=== PATIENT | female | born 1950 | race African-American/Black ===

== ENCOUNTER → 2018-12-28 | Day surgery (SDC) | payer MEDICARE ==
[~2018-12-28] MED LIST: ATORVASTATIN PO; BUPIVACAINE 0.25%/EPI 30ML SDV INJ ONE; DEXAMETHASONE SOD PHOS INJ 4 MG/ML VIAL ONE; FARXIGA PO; FENTANYL CITRATE/PF 100MCG/2 ML INJ ONE; FUROSEMIDE40 MG PO; HYDROCODONE/APAP 5MG-325MG TAB ONE; KETOROLAC TROMETHAMINE 30 MG/ML VIAL ONE; LIDOCAINE HCL 2% LOCAL INJ 5 ML SDV VIAL INJ ONE; LISINOPRIL PO; METFORMIN HCL1000 MG PO; MIDAZOLAM HCL 2 MG/2 ML VIAL ONE; ONDANSETRON HCL INJ 2MG/ML 2ML 2 MG/ML VIAL ONE; PROPOFOL IV EMULSION 10 MG/ML 20 ML VIAL ONE; SEVOFLURANE INHAL SOLN 250 ML PEN BTL ONE; [UNRECOGNIZED DRUG - OTHER] PO
--- OUTSIDE RECORDS SUMMARY | 2018-12-28 07:41 | XMS REPORT ---
Author Author [facility] Address Unknown Phone Unavailable Care Team Providers [facility] Associate Name Role Phone Unavailable Unavailable Problems This patient has no known problems. Allergies, Adverse Reactions, Alerts This patient has no known allergies or adverse reactions. Medications This patient has no known medications. Results Test Description Test Time Test Comments Text Results Atomic Results Result Comments SCR MAMM BILATERAL NGA CAD DIGITAL 2018-10-10 14:02:32 - SCR MAMM BILATERAL NGA CAD DIGITALBILATERAL DIGITAL SCREENING MAMMOGRAM 3D/2D WITH CAD: 10/09/2018CLINICAL: Asymptomatic. Digital breast tomosynthesis was performed in addition to routine CC and MLO views. Current mammographic images were evaluated by either a [employer] or a [place] Image[employer] CAD (computer aided detection system). No prior exams were available for comparison. There are sc attered fibroglandular tissues in both breasts. There are benign appearing cysts in both breasts. There also are benign appearing scattered calcifications in both breasts. No suspicious mass, architectural distortion, malignant type calcification, or lymph node abnormality detected. IMPRESSION: BENIGNThere is no mammographic evidence of malignancy. Resume annual screening mammography in one year. Richard nichols/maikel:10/10/2018 14:02:32 Entry: cc - 10/12/2018 10:09:16Imaging Technologist: Genny VALDEZ, [facility]-RGletter sent: BIRADS 1-2 Normal Mammogram BI-RADS: 2 Benign
[2018-12-28 09:30] LABS: BASOPHILS % 0.8 % (0.0-1.0); EOSINOPHILS # (AUTO) 0.2 (0.0-0.4); HEMATOCRIT 37.5 % (34.2-44.1); HEMOGLOBIN 12.1 g/dL (12.0-16.0); LYMPHOCYTES # (AUTO) 2.2 (1.0-3.2); LYMPHOCYTES % 41.6 % (18.0-39.1); MEAN CORPUSCULAR HEMOGLOBIN 27.6 pg (28-32); MEAN CORPUSCULAR HGB CONC 32.3 g/dL (31-35); MEAN CORPUSCULAR VOLUME 85.4 fL (81-99); MONOCYTES # (AUTO) 0.4 (0.2-0.8); NEUTROPHILS # (AUTO) 2.4 (2.1-6.9); NEUTROPHILS % 45.4 % (38.7-80.0); PLATELET COUNT 203 x10e3/uL (140-360); RED BLOOD COUNT 4.39 x10e6/uL (3.6-5.1); RED CELL DISTRIBUTION WIDTH 14.7 % (11.7-14.4)
[2018-12-28 09:45] LABS: ANION GAP 14.9 mmol/L (8-16); CREATININE, SERUM 1.46 mg/dL (0.57-1.11); POTASSIUM 4.9 mmol/L (3.5-5.1)
--- NOTE | 2018-12-28 09:56 | Diagnostic Imaging Report ---
EXAMINATION: PA and lateral views of the chest. COMPARISON: None CLINICAL HISTORY: Preoperative exam for left arm mass removal DISCUSSION: Lines/tubes: None. Lungs: The lungs are well inflated and clear. There is no evidence of pneumonia or pulmonary edema. Pleura: There is no pleural effusion or pneumothorax. Heart and mediastinum: The cardiomediastinal silhouette is normal. Crescentic calcification projecting over the anterior heart border on the lateral radiograph may relate to prior pericarditis. Bones and soft tissues: No acute bony abnormalities. Degenerative changes in the thoracic spine IMPRESSION: No acute cardiopulmonary abnormalities. Signed by: Dr. Domingo Pride M.D. on 12/28/2018 9:52 AM
--- NOTE | 2018-12-28 11:14 | Operative Report ---
DATE OF PROCEDURE: 12/28/2018 SURGEON: Flex Jones MD PREOPERATIVE DIAGNOSIS: Mass of the left arm, shoulder area. POSTOPERATIVE DIAGNOSIS: Lipoma of the left arm, shoulder region. PROCEDURE PERFORMED: Excision of mass of the left shoulder. ANESTHESIA: General. ESTIMATED BLOOD LOSS: Minimal. DRAINS: None. COMPLICATIONS: None. INDICATION AND FINDINGS: This patient is a 68-year-old female admitted for excision of mass of the left shoulder, arm region present for many years, increasing in size, becoming tender. INTRAOPERATIVE FINDINGS: The patient had a large lipoma of the previously described area on the lateral part of the arm that was well encapsulated and this mass measured about 6 cm. DESCRIPTION OF PROCEDURE: With the patient lying on the operative table in the supine position and after administration of general anesthesia, she was prepped and draped for excision of mass of the left arm, shoulder region. Preemptive anesthesia was given 0.25% Marcaine with epinephrine as an incisional block and field block. Dissection was carried down through the skin, subcutaneous tissue until the mass was identified. It was a well circumscribed lipoma that was excised using a combination of electrocautery and sharp dissection. The mass was removed with gross clear margin. Bleeding points cauterized if any. The wound was then irrigated and closed in two layers using 3-0 Vicryl for the soft tissues and skin was closed using 3-0 vertical mattress and silk interrupted. The patient tolerated the procedure well and taken to recovery room in stable condition. MD AKILAH Chavira/MODL /[id number]
[2018-12-28 12:00] VITALS: BP 119/70
== END | disposition home or self-care (01) ==
LOC: OR 07:39
PROVIDERS: ATTEND Surgery
DX: D17.22 Benign lipomatous neoplasm of skin and subcutaneous tissue of left arm (principal); J44.9 Chronic obstructive pulmonary disease, unspecified; G47.33 Obstructive sleep apnea (adult) (pediatric); I25.10 Atherosclerotic heart disease of native coronary artery without angina pectoris; I11.0 Hypertensive heart disease with heart failure; I50.9 Heart failure, unspecified; E11.9 Type 2 diabetes mellitus without complications; I25.2 Old myocardial infarction; Z79.84 Long term (current) use of oral hypoglycemic drugs; Z79.02 Long term (current) use of antithrombotics/antiplatelets; Z68.31 Body mass index [BMI] 31.0-31.9, adult; Z95.820 Peripheral vascular angioplasty status with implants and grafts; Z87.891 Personal history of nicotine dependence
CPT/HCPCS: 11406; 12032; 36415; 71046; 80048; 82948; 85025; 88304; 93005; J1100; J1885; J2001; J2250; J2405; J2704